=== PATIENT | male | born 1995 | race Caucasian/White ===

== ENCOUNTER 2020-11-23 06:22 | Day surgery (SDC) | payer BC, OTHER ==
[~2020-11-23] VITALS: Ht 188 cm; Wt 92.1 kg
--- NOTE | ~2020-11-23 | O ---
[facility] [place] [address] OPERATIVE REPORT Name: HAROLDO PALMA Room #: 150-4 [facility] M.R.#: [id number] Admission: 11/23/20 Attend Phys: Antoni Mcfarlane MD Discharge: Date of : 89 Report #: [id number] THIS REPORT FOR: cc: Frantz Hernandez MD, Neal A. MD Franey,Antoni Martinez MD ~ DATE OF SERVICE: 11/23/[address] Antoni Mcfarlane, Dr. Frantz Hernandez PREOPERATIVE DIAGNOSIS: Left inguinal femoral hernia. POSTOPERATIVE DIAGNOSIS: Left inguinal femoral hernia with a cord lipoma. PROCEDURE: Repair of a left inguinal femoral hernia with Prolene hernia system mesh and excision of a left cord lipoma. SURGEON: Dr. Antoni Mcfarlane ANESTHESIA: Local IV sedation. DESCRIPTION OF PROCEDURE: The patient was brought to the operating room and placed on operative table in the supine position. Sequential compression devices were in place for DVT prophylaxis. There was no indication for preoperative antibiotics. The patient underwent IV sedation. Left inguinal area was prepped and draped in a sterile fashion. Skin and subcutaneous tissue were then infiltrated with 0.5% Marcaine and 1% Xylocaine with epinephrine. The left inguinal skin incision was then performed using #10 scalpel blade. Hemostasis obtained using electrocautery as well as clamps and 2-0 chromic ties. Dissection was carried down through subcutaneous tissue, the external oblique fascia, which was then incised with a knife, opened the Metzenbaum scissors. The cord was then elevated, held in place with Susan drain. Cremasteric muscle fibers were then split in the direction of their fibers using clamp and electrocautery. A cord lipoma was identified, dissected free, clamped, excised and tied with 2-0 chromic tie. The ring was somewhat weakened and ectatic. I also explored the left femoral area. There was no major obvious hernia sac, but there was a small fascial defect. I opted to repair both the indirect inguinal hernia and the femoral hernia with a Prolene hernia system mesh. An extended Prolene hernia system mesh was then inserted through the internal ring and deployed in the preperitoneal space covering the femoral canal as well as the connector was left in the internal ring. The overlay patch was then deployed in the inguinal canal. The mesh was secured at the pubic tubercle superiorly and at the connector with simple interrupted 2-0 Vicryl sutures. The mesh was split and wrapped around the cord, secured to the inguinal ligament with simple interrupted 2-0 Vicryl suture. The cord and ilioinguinal nerve were then [address] [address] OPERATIVE REPORT Name: HAROLDO PALMA Room #: 150-4 [facility] M.R.#: [id number] Admission: 11/23/20 Attend Phys: Antoni Mcfarlane MD Discharge: Date of : 89 Report #: [id number] returned to the canal intact. The external oblique fascia was then closed using running 2-0 Vicryl suture. Anabel's fascia was then reapproximated using 3 simple interrupted 2-0 chromic sutures and the skin then closed with a running 4-0 subcuticular Vicryl stitch. Wound was then dressed with Mastisol, 1/2-inch Steri-Strips cut in half, Telfa, 4 x 4 gauze, sponge and tape. The patient was then taken to the recovery room awake, alert, in good condition. Estimated blood loss was approximately 10 mL and the patient tolerated procedure well. All sponge, lap and instrument counts correct x 2. By: [id number] Antoni Mcfarlane MD /nt
[~2020-11-23 06:22] MED LIST: ZYRTEC 10 MG TA10 MG PO
[2020-11-23 07:08] VITALS: BP 125/63
[2020-11-23] MEDS ORDERED: NORCO 5-325 TA1 EAC2 PO (08:38)
[2020-11-23 10:26] VITALS: BP 125/63
--- NOTE | 2020-11-28 16:06 | PATH ---
[facility] [address] [place] [address] PATHOLOGY RPT PROCEDURE Name: HAROLDO VENTURA Room #: DEP [facility] M.R.#: [id number] Admission: 11/23/20 Date of : 89 Discharge: 11/23/20 Report #: [id number] Path Case #: [id number] [facility] Accession Number: [id number] . 01 Material submitted: . inguinal area - CORD LIPOMA . 01 Clinical history: . LEFT INGUINAL HERNIA,FEMORAL HERNIA OF LEFT SIDE . 02 Diagnosis: Mature adipose tissue, cord lipoma, excision: - Compatible with a lipoma. - Focal congestion and reactive changes. 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 02 Electronically signed: . Barbara Barrios MD, Pathologist NPI- [id number] . 01 Gross description: . Received in formalin labeled "Ventura, Haroldo, cord lipoma" are two fragments of yellow-mason lobulated soft tissue measuring in aggregate 2.8 x 2.1 x 0.5 cm. The specimen is submitted entirely without sectioning in cassette A1. [place]24/2020[place] [facility] 11/24/2020 1251 Local . 02 Pathologist provided ICD-10: K40.90, K41.90 . 02 CPT . 582659 Specimen Comment: A courtesy copy of this report has been sent to [phone], [phone] Specimen Comment: [phone] Specimen Comment: Report sent to / Performed at: [address], [place], [place] [id number] MD Basil Booth MD Phone: [phone] Performed at: [address] [id number] MD Barbara Barrios MD Phone: [phone]
== END 2020-11-23 11:00 | disposition home or self-care (01) ==
LOC: TBA 06:22 → OR 06:22 → TBA 06:25 → OR 09:14
PROVIDERS: ATTEND Surgery
DX: K40.90 Unilateral inguinal hernia, without obstruction or gangrene, not specified as recurrent (principal); K41.90 Unilateral femoral hernia, without obstruction or gangrene, not specified as recurrent; D17.6 Benign lipomatous neoplasm of spermatic cord; Z98.890 Other specified postprocedural states; Z79.899 Other long term (current) drug therapy
CPT/HCPCS: 50010; 50101; 50386; 50417; 54111; 56524; 56526; 56528; 62110; 62850; 70005